=== PATIENT | female | born 1940 | race Caucasian/White ===

== ENCOUNTER 2018-04-18 20:22 | Emergency (ER) | payer OTHER, MEDICARE, BC ==
[~2018-04-18] VITALS: Ht 162.6 cm; Wt 81.2 kg
[2018-04-18] MEDS ORDERED: ibuprofen 200mg tablet PO ONE (21:30)
[2018-04-18] MEDS ORDERED: BENZ-16 PO (21:36)
== END 2018-04-18 21:45 | disposition home or self-care (01) ==
LOC: ER 20:23
DX: S30.1XXA Contusion of abdominal wall, initial encounter (principal); E78.00 Pure hypercholesterolemia, unspecified; Z87.891 Personal history of nicotine dependence; Z88.2 Allergy status to sulfonamides; Z79.899 Other long term (current) drug therapy; V49.9XXA Car occupant (driver) (passenger) injured in unspecified traffic accident, initial encounter; Y93.89 Activity, other specified; Y92.488 Other paved roadways as the place of occurrence of the external cause; Y99.8 Other external cause status
CPT/HCPCS: 99283